=== PATIENT | female | born 1945 | race Caucasian/White ===

== ENCOUNTER 2024-11-12 16:47 | Inpatient (IN) | payer MEDICARE, OTHER ==
[~2024-11-12] VITALS: Ht 160 cm; Wt 113.5 kg
--- NOTE | 2024-11-12 18:20 | DVH ---
EXAM: XR Chest, 1 View CLINICAL INDICATION: CHEST PAIN TECHNIQUE: Frontal view of the chest. COMPARISON: None FINDINGS: LUNGS AND PLEURAL SPACES: Unremarkable. No consolidation. No pneumothorax. HEART: Unremarkable. No cardiomegaly. MEDIASTINUM: Unremarkable. Normal mediastinal contour. BONES/JOINTS: Unremarkable. No acute fracture. OTHER FINDINGS: . None. IMPRESSION: No acute cardiopulmonary process.
[2024-11-12 18:23] LABS: Basophils # (auto) 0 10 ^3/uL (0-0.2); Basophils % (auto) 0.5 % (0.0-2.0); Eosinophils # (auto) 0.3 10 ^3/uL (0-0.8); Eosinophils % (auto) 3.8 % (0.0-7.0); Hematocrit 35.9 % (36.0-46.0); Hemoglobin 11.9 g/dL (12.2-16.2); Lymphocytes % (auto) 24.2 % (10.0-50.0); Mean Corpuscular Hemoglobin 31.1 pg (28.0-32.0); Mean Corpuscular Hgb Conc. 33.2 g/dL (32.0-36.0); Mean Corpuscular Volume 93.7 fL (80.0-100.0); Monocytes % (auto) 11.5 % (0.0-12.0); Nucleated Red Blood Cells % 0.1 %; Platelet Count (auto) 191 10^3/uL (140-450); Red Blood Cells 3.83 10^6/uL (4.0-5.20); Red Cell Distribution Width 13.4 % (11.8-14.3); White Blood Cell 8.4 10^3/uL (4.4-10.8)
--- NOTE | 2024-11-12 18:24 | ED.PDOC ---
HPI Comments HPI: 79 year old female CLIFFORD presents to the ED with chief complaint of chest pain. Patient reports that while in her family's car, she started to experience severe chest pain across her chest, so they had stopped by a fire station for assistance. EMS relays that upon their arrival, patient was given 324mg of ASA with relief in the patient's pain noted. Patient states she no longer has any chest pain at this time. Patient denies any SOB, dizziness, N/V, numbness, weakness, or headache. All symptoms have resolved prior to my evaluation. Initial Vital Signs: Temp : 97.8F BP: 166/70 HR: 70 RR: 20 SpO2: 99% Past Medical History: DM, CHF, HTN, CKF Past Surgical History: Left hip replacement, Appendectomy, Cholecystectomy, Back surgery Social History: Denies smoking, ETOH, or drug use. Allergies: NKDA HPI: Poor Historian. REVIEW OF SYSTEMS: CONSTITUTIONAL: Denies acute: fever, diaphoresis, chills, generalized weakness. HEAD: Denies acute: headache, photophobia Eyes: Denies acute: Double vision, vision loss, eye pain, eye discharge. EARS: Denies acute: tinnitus, hearing loss, ear discharge, ear pain, THROAT: Denies acute: sore throat, swelling, difficulty swallowing , pain with swallowing, change in voice. NECK: Denies acute: neck pain, neck swelling, stiff neck. HEART: Denies acute : palpitations, LUNGS: Denies acute: SOB, wheezing, cough, hemoptysis ABDOMEN: Denies acute: abdominal pain, Nausea, Vomiting, diarrhea, melena , hematemesis, hematochezia SKIN: Denies acute: rash, redness, lesions, itchiness. EXTREMITIES: Denies acute: calf pain, numbness, tingling, weakness, denies pain in extremity. Denies acute: Low back pain. Neuro: Denies acute: focal neurological deficit, motor or sensory focal neurological deficit, tremors, seizure like activity, confusion, dizziness, change in mental status, loss of bowel or bladder function, cauda equina like symptoms. : Denies acute: dysuria, hematuria, flank pain, increase in urinary frequency. PSYCH: Denies acute: hallucination, suicidal ideation, homicidal ideation. FEMALE: Denies acute: abnormal vaginal bleeding, foul odor, unusual discharge. PHYSICAL EXAM: General: no acute distress, awake and alert. Head: normocephalic, atraumatic. Neck: supple, trachea is midline, no swelling. Throat: Normal phonation. Eyes:, no erythema, no purulent discharge, no proptosis, no icterus. Heart: regular rate, regular rhythm, no significant murmur appreciated. Lungs: no apparent respiratory distress, Able to speak in full sentences. No wheezing, no rhonchi, no crackles. No stridors Clear to auscultation bilaterally. Abdomen: non tender to palpation, non distended, soft, no guarding, no rebound, + bowel sounds. Obese. Neuro: Awake, Alert, oriented to name, self, situation, follows commands GCS=15. Speech is normal. Skin: no petechia, no purpura, no cyanosis, non-pale, not jaundice. Lower extremities: --trace bilateral - Pitting edema no deformity, no focal swelling, no calf TTP. Makes eye contact. moves all four extremities. Face: no apparent facial droop. ED COURSE: Chief Complaint: Chest Pain Time Seen by MD: 18:21 Primary Care Provider: UNKNOWN Reviewed Notes: Nurses Notes, Allergies Allergies: Coded Allergies: NO KNOWN ALLERGIES (Unverified , 11/12/24) Information Source: Patient Mode of Arrival: EMS Was a procedure done? Was a procedure done?: No CP Differential Dx Differential Diagnosis: N/A Differential Diagnosis: Other (Ddx include but not limitied to gastritis, musculoskeletal pain, radiculopathy, atypical chest pain, dissection, aneurysm, ACS, unstable angina, hiatal hernia, GERD, anxiety, costochondritis, PE, pneumothroax, neoplasm, cardiac ischemia, drug abuse, anemia.) X-Ray, Labs, Meds, VS Vital Signs Date Time Temp Pulse Resp B/P (MAP) Pulse Ox O2 Delivery O2 Flow Rate FiO2 11/12/24 20:30 98.4 62 18 169/68 (101) 95 98.4 11/12/24 17:33 61 11/12/24 17:20 97.8 70 20 166/70 (102) 99 97.8 11/12/24 16:49 61 Lab Test 11/12/24 21:45 11/12/24 19:52 11/12/24 17:52 Range/Units Troponin I High Sensitivity Pending 5 5 </=34 ng/L Thyroid Stimulating Hormone (TSH) Pending White Blood Count 8.4 4.4-10.8 10^3/uL Red Blood Count 3.83 L 4.0-5.20 10^6/uL Hemoglobin 11.9 L 12.2-16.2 g/dL Hematocrit 35.9 L 36.0-46.0 % Mean Corpuscular Volume 93.7 80.0-100.0 fL Mean Corpuscular Hemoglobin 31.1 28.0-32.0 pg Mean Corpuscular Hemoglobin Concent 33.2 32.0-36.0 g/dL Red Cell Distribution Width 13.4 11.8-14.3 % Platelet Count 191 140-450 10^3/uL Mean Platelet Volume 8.1 6.9-10.8 fL Neutrophils (%) (Auto) 60.0 37.0-80.0 % Lymphocytes (%) (Auto) 24.2 10.0-50.0 % Monocytes (%) (Auto) 11.5 0.0-12.0 % Eosinophils (%) (Auto) 3.8 0.0-7.0 % Basophils (%) (Auto) 0.5 0.0-2.0 % Neutrophils # (Auto) 5.0 1.6-8.6 10 ^3/uL Lymphocytes # (Auto) 2.0 0.4-5.4 10 ^3/uL Monocytes # (Auto) 1.0 0-1.3 10 ^3/uL Eosinophils # (Auto) 0.3 0-0.8 10 ^3/uL Basophils # (Auto) 0 0-0.2 10 ^3/uL Nucleated Red Blood Cells 0.1 % Sodium Level 142 136-145 mmol/L Potassium Level 4.5 3.5-5.1 mmol/L Chloride Level 107 98-107 mmol/L Carbon Dioxide Level 27 20-31 mmol/L Anion Gap 8 5-15 Blood Urea Nitrogen 72 H 9-23 mg/dL Creatinine 2.41 H 0.550-1.02 mg/dL Glomerular Filtration Rate Calc 20 >90 mL/min BUN/Creatinine Ratio 29.9 H 10.0-20.0 Serum Glucose 144 H 74-106 mg/dL Calcium Level 10.0 8.7-10.4 mg/dL Total Bilirubin 0.2 0.2-1.0 mg/dL Aspartate Amino Transferase (AST) 17 13-40 U/L Alanine Aminotransferase (ALT) 23 7-40 U/L Alkaline Phosphatase 88 46-116 U/L Total Protein 6.3 5.7-8.2 g/dL Albumin 4.3 3.2-4.8 g/dL [place] [address] Ph: [phone] DIAGNOSTIC IMAGING Diagnostic Imaging Report : [id number] Signed PATIENT: SAE THORNE ACCT: [id number] UNIT: [id number] : 1945 LOC: ER ROOM / BED: / AGE / SEX: 79 / F ADM STATUS: REG ER SERVICE 19 ORDERING PHYSICIAN: MOR JACKMAN DO PROCEDURE(s): CXRP - CHEST PORTABLE REASON: CHEST PAIN ORDER NUMBER(s): [id number], ACCESSION NUMBER(s): [id number] EXAM: XR Chest, 1 View CLINICAL INDICATION: CHEST PAIN TECHNIQUE: Frontal view of the chest. COMPARISON: None FINDINGS: LUNGS AND PLEURAL SPACES: Unremarkable. No consolidation. No pneumothorax. HEART: Unremarkable. No cardiomegaly. MEDIASTINUM: Unremarkable. Normal mediastinal contour. BONES/JOINTS: Unremarkable. No acute fracture. OTHER FINDINGS: . None. IMPRESSION: No acute cardiopulmonary process. ATED BY: IGNACIO MILLER MD DICTATED DATE/TIME: 11/12/241817 SIGNED BY: IGNACIO MILLER MD SIGNED DATE/TIME: 11/12/241817 CC: Time of 1ST Reevaluation: 19:21 Reevaluation 1ST: Unchanged Patient Education/Counseling: Diagnosis, Treatment Family Education/Counseling: No Family Present Comments Patient presented with the above HPI.---chest pain---workup was initiated. patient was found with the above mentioned diagnosis. the following medications were ordered: please refer to order lists of meds and tests obtained by myself Dr. Jackman. Patient ED course and VS have been stabilized. Patient has been reassessed in the ED and remained in a stable condition. Pertinent incidental findings were discussed with the patient and/or family. Patient/family voices understanding and is agreeable with plan. Patient has been observed in the ED adequate length of time to insure improvement/stability. Escalation of care considered: Consideration of escalation to observation or admission Patient was ADMITTED to the medicine team for further evaluation and treatment of their presentation. All the reports of any imaging studies that were ordered by myself were reviewed by myself. Departure 1 Departure Time of Disposition: 18:31 Impression: Primary Impression: Chest pain Disposition: ADMITTED INPATIENT Admit to: Tele Condition: Guarded Discharged With: Self Critical Care Note Critical Care Time?: No Heart Score Heart Score: Heart Score Response (Comments) Value History Moderate Suspicious 1 EKG Normal 0 Age >65 2 Risk Factors >3 or Hx ASHD 2 Troponin Normal limit 0 Total 5 I personally scribed for MOR JACKMAN DO ([email or web address]) on 11/12/24 at 18:24. Electronically submitted by Devan Mcguire ([email or web address]). I personally scribed for MOR JACKMAN DO ([email or web address]) on 11/12/24 at 18:50. Electronically submitted by Devan Mcguire ([email or web address]). MOR JACKMAN DO Nov 12, 2024 18:24
[2024-11-12 18:30] LABS: Alanine Aminotransferase 23 U/L (7-40); Albumin 4.3 g/dL (3.2-4.8); Alkaline Phosphatase 88 U/L (46-116); Anion Gap 8 (5-15); Aspartate Aminotransferase 17 U/L (13-40); BUN/Creatinine Ratio 29.9 (10.0-20.0); Carbon Dioxide 27 mmol/L (20-31); Chloride 107 mmol/L (98-107); Potassium 4.5 mmol/L (3.5-5.1); Sodium 142 mmol/L (136-145); Total Protein 6.3 g/dL (5.7-8.2)
[2024-11-12 18:55] LABS: Bilirubin, Total 0.2 mg/dL (0.2-1.0); Blood Urea Nitrogen 72 mg/dL (9-23); Glucose 144 mg/dL (74-106)
[2024-11-12 20:30] VITALS: TEMP 98.4
[2024-11-12] MEDS ORDERED: ATORVASTATIN 20 MG TAB PO SCH (22:00)
[2024-11-12] MEDS ORDERED: CARVEDILOL 3.125 MG TAB PO ONE (22:00)
[2024-11-12] MEDS ORDERED: NITROGLYCERIN 0.4 MG SL TAB SL PRN (22:00)
[2024-11-12] MEDS ORDERED: hydrALAZINE HCL 20 MG/ML VL IV ONE (22:00)
[2024-11-12] MEDS ORDERED: ATORVASTATIN 20 MG TAB PO ONE (22:00)
[2024-11-12] MEDS ORDERED: hydroCHLOROthiazide 25 MG TAB PO ONE (22:00)
[2024-11-12] MEDS ORDERED: MORPHINE SULFATE INJ 2 MG/ml SYRG IV PRN (22:00)
--- NOTE | 2024-11-12 22:09 | DVHHPRES ---
History of Present Illness Resident Creating Document: DUC LAY Reason for Visit: chest pain History of Present Illness Patient is an 79-year-old female with a past medical history of diabetes, hypertension, dyslipidemia, and CHF presented to the ED today with unprovoked chest pain earlier today. According to the patient, she was sitting in her daughter's car and all of a sudden she started having chest pain that felt like tightness substernally. It radiates towards her neck. Patient's daughter immediately called 911, patient was picked up by the ambulance and brought to the ED. On route to the ED, patient received 4 baby aspirin and by the time she got to the ED, the chest pain has subsided and she felt better. She denied any nausea vomiting or palpitation. Patient said she is compliant with her medications. Past medical history: Diabetes, hypertension, dyslipidemia, and CHF Past Surgical History: Left hip replacement, Appendectomy, Cholecystectomy, Back surgery Family history: Noncontributory Social history: Lives at home with her daughter does not drink or smoke Past Medical History See HPI Past Surgical History See HPI Family History See HPI Review of Systems Review of Systems Constitutional: Denies fever no chills no feeling of malaise HEENT: Denies headache, ear pain, ear discharges, conjunctivitis, nasal disc harge throat pain Cardiovascular: Denies chest pain, palpitation, orthopnea, PND, or pedal edema Respiratory: Denies shortness of breath, cough cough, sputum production, hemoptysis, GI: Denies abdominal pain, nausea, vomiting, diarrhea, hematemesis, hem atochezia, : Denies frequency, urgency, hematuria, Endocrine: Denies unintentional weight gain or weight loss, feeling of hot flashes, Martin: Denies easy bruising, bleeding disorders, epistaxis Musculoskeletal: Denies joint pains, muscle aches Psych: No evidence of depression, chelsea, suicidal ideation Allergies: Coded Allergies: NO KNOWN ALLERGIES (Unverified , 11/12/24) Medications Current Medications Medications Dose Ordered Sig/Margarita Route Start Time Stop Time Status Last Admin Dose Admin Enoxaparin Sodium 40 mg DAILY SC 11/13/24 10:00 UNV Morphine Sulfate 2 mg Q30M PRN IV 11/12/24 22:00 UNV Nitroglycerin 0.4 mg Q5MINP PRN SL 11/12/24 22:00 UNV Aspirin 81 mg DAILY PO 11/13/24 10:00 UNV Atorvastatin Calcium 40 mg HS PO 11/12/24 22:00 UNV Carvedilol 6.25 mg Q12HR PO 11/12/24 22:00 UNV Hydrochlorothiazide 25 mg DAILY PO 11/13/24 10:00 UNV Exam Vital Signs Vital Signs Date Time Temp Pulse Resp B/P (MAP) Pulse Ox O2 Delivery O2 Flow Rate FiO2 11/12/24 20:30 98.4 62 18 169/68 (101) 95 98.4 Exam General Appearance: Alert, Oriented X3, Cooperative, No acute distress HEENT: Atraumatic, PERRLA, EOMI, Mucous membrane moist/pink Respiratory: Clear to auscultation, Normal air movement Cardiovascular: Regular rate, Normal S1, Normal S2, No murmurs, no chest wall tenderness Abdominal: NO distention, no tenderness, bowel sounds present, no scars noted Extremities: No clubbing, No cyanosis, No edema, Normal pulses, No tenderness/swelling Skin: No rashes, No breakdown, No significant lesion Neuro: Normal gait, Normal speech, Strength at 5/5 X4 ext, Normal tone, Sensation intact, Cranial nerves 3-12 NL, Reflexes 2+ Psych/Mental Status: Mental status NL, Mood NL Labs/Xrays Labs Test 11/12/24 21:45 11/12/24 17:52 Range/Units White Blood Count 8.4 4.4-10.8 10^3/uL Red Blood Count 3.83 L 4.0-5.20 10^6/uL Hemoglobin 11.9 L 12.2-16.2 g/dL Hematocrit 35.9 L 36.0-46.0 % Mean Corpuscular Volume 93.7 80.0-100.0 fL Mean Corpuscular Hemoglobin 31.1 28.0-32.0 pg Mean Corpuscular Hemoglobin Concent 33.2 32.0-36.0 g/dL Red Cell Distribution Width 13.4 11.8-14.3 % Platelet Count 191 140-450 10^3/uL Mean Platelet Volume 8.1 6.9-10.8 fL Neutrophils (%) (Auto) 60.0 37.0-80.0 % Lymphocytes (%) (Auto) 24.2 10.0-50.0 % Monocytes (%) (Auto) 11.5 0.0-12.0 % Eosinophils (%) (Auto) 3.8 0.0-7.0 % Basophils (%) (Auto) 0.5 0.0-2.0 % Neutrophils # (Auto) 5.0 1.6-8.6 10 ^3/uL Lymphocytes # (Auto) 2.0 0.4-5.4 10 ^3/uL Monocytes # (Auto) 1.0 0-1.3 10 ^3/uL Eosinophils # (Auto) 0.3 0-0.8 10 ^3/uL Basophils # (Auto) 0 0-0.2 10 ^3/uL Nucleated Red Blood Cells 0.1 % Sodium Level 142 136-145 mmol/L Potassium Level 4.5 3.5-5.1 mmol/L Chloride Level 107 98-107 mmol/L Carbon Dioxide Level 27 20-31 mmol/L Anion Gap 8 5-15 Blood Urea Nitrogen 72 H 9-23 mg/dL Creatinine 2.41 H 0.550-1.02 mg/dL Glomerular Filtration Rate Calc 20 >90 mL/min BUN/Creatinine Ratio 29.9 H 10.0-20.0 Serum Glucose 144 H 74-106 mg/dL Calcium Level 10.0 8.7-10.4 mg/dL Total Bilirubin 0.2 0.2-1.0 mg/dL Aspartate Amino Transferase (AST) 17 13-40 U/L Alanine Aminotransferase (ALT) 23 7-40 U/L Alkaline Phosphatase 88 46-116 U/L Total Protein 6.3 5.7-8.2 g/dL Albumin 4.3 3.2-4.8 g/dL Assessment/Plan Assessment/Plan Assessment Chest pain rule out ACS Diabetes mellitus Hyperlipidemia Hypertension Morbid obesity Congestive heart failure Plan Admit for further workup Troponin negative x 3 EKG revealed PVC and ventricular hypertrophy otherwise unremarkable We will get an echo to assess patient's ventricular function Pending A1 C Resume home medication for lipid and hypertension. Per patient she has not taken her medications this morning. This may probably be the reason for the chest pain Patient has been wanting to go home because she is she said she feels better. Advised patient to stay and complete the workup. however patient keeps telling me she feels better she wants to go home and if she started having chest pain again her daughter can take her to the emergency. Goal of care discussed for more than 25 minutes: full code Case and plan discussed with Dr. Glez. Plan discussed with: Patient My Orders Orders - DUC LAY RESIDENT Procedure Category Date Status Time Admit ADMIT 11/12/24 Transmitted 22:00 Code Status CODE 11/12/24 Transmitted 22:00 Vital Signs GALINA 11/12/24 In Process 22:00 Review Orders With GALINA 11/12/24 In Process Adm. 22:00 Consistent DIET 11/13/24 [facility]Diabetes Breakfast Notify Md Of Changes [facility] 11/12/24 In Process From Base 22:00 Advance Directive [facility] 11/12/24 In Process 22:00 Echo 2d Mode Cardiac US 11/12/24 Logged DOP 22:00 Patient Condition ORDERS 11/12/24 Transmitted 22:00 Allergies GALINA 11/12/24 In Process 22:00 Enoxaparin Sodium PHA 11/13/24 Logged (Lovenox) 10:00 Morphine Sulfate PHA 11/12/24 Logged Injection 22:00 Oxygen By Nasal RT 11/12/24 Transmitted Cannula 22:00 Stat Ekg For Chest [facility] 11/12/24 In Process Pain 22:00 Notify Md Of Changes [facility] 11/12/24 In Process From Base 22:00 Clinical Registered Nurse For [facility] 11/12/24 In Process 24 Hours 22:00 Emergency Dysrhythmia [facility] 11/12/24 In Process Protocol 22:00 Rhythm Strips Once [facility] 11/12/24 In Process Every Shift 22:00 Nitroglycerin PHA 11/12/24 Logged Sublingual (Ntrostat 22:00 Aspirin Tablet PHA 11/13/24 Logged 10:00 Atorvastatin (Lipitor) PHA 11/12/24 Logged 22:00 Atorvastatin (Lipitor) PHA 11/12/24 Logged 22:00 Carvedilol Tablet PHA 11/12/24 Logged (Coreg Tablet) 22:00 Carvedilol Tablet PHA 11/12/24 Logged (Coreg Tablet) 22:00 Hydralazine Injection PHA 11/12/24 Logged (Apresoline Inject 22:00 Hydrochlorothiazide PHA 11/12/24 Logged Tablet (Hydrochlorot 22:00 Hydrochlorothiazide PHA 11/13/24 Logged Tablet (Hydrochlorot 10:00 Basic Metabolic Panel LAB 11/13/24 Verified 04:00 Complete Blood Count LAB 11/13/24 Verified 04:00 PTPTT LAB 11/13/24 Verified 04:00 Thyroid Stimulating LAB 11/12/24 Transmitted Hormone 22:07 Urinalysis LAB 11/12/24 Transmitted 22:07 Drug Screen LAB 11/12/24 Transmitted 22:07 Date of Service: Nov 12, 2024 Billing Provider: GERRY GLEZ MD Common Visit Codes: 36005-BHSTISX INP/OBS CARE (HIGH) Secondary Visit Codes: 46155-[id number] CARE PLAN 30 MINUTES DUC LAY RESIDENT Nov 12, 2024 22:09 GERRY GLEZ MD Nov 15, 2024 10:57
[2024-11-12 23:00] VITALS: BP 159/88; PULSE 60; RESP 18; O2SAT 96
--- NOTE | 2024-11-13 07:27 | DVHDSRES ---
Discharge Summary Date of Admission Resident Creating Document: DUC LAY RESIDENT Nov 12, 2024 at 22:00 Date of Discharge: Nov 12, 2024 Admitting Diagnosis Chest pain Labs/Diagnostic Data: Laboratory Results Test 11/12/24 21:45 11/12/24 19:52 11/12/24 17:52 Troponin I High Sensitivity 6 ng/L (</=34) Thyroid Stimulating Hormone (TSH) 1.39 uIU/mL (0.55-4.78) White Blood Count 8.4 10^3/uL (4.4-10.8) Red Blood Count 3.83 10^6/uL (4.0-5.20) Hemoglobin 11.9 g/dL (12.2-16.2) Hematocrit 35.9 % (36.0-46.0) Mean Corpuscular Volume 93.7 fL (80.0-100.0) Mean Corpuscular Hemoglobin 31.1 pg (28.0-32.0) Mean Corpuscular Hemoglobin Concent 33.2 g/dL (32.0-36.0) Red Cell Distribution Width 13.4 % (11.8-14.3) Platelet Count 191 10^3/uL (140-450) Mean Platelet Volume 8.1 fL (6.9-10.8) Neutrophils (%) (Auto) 60.0 % (37.0-80.0) Lymphocytes (%) (Auto) 24.2 % (10.0-50.0) Monocytes (%) (Auto) 11.5 % (0.0-12.0) Eosinophils (%) (Auto) 3.8 % (0.0-7.0) Basophils (%) (Auto) 0.5 % (0.0-2.0) Neutrophils # (Auto) 5.0 10 ^3/uL (1.6-8.6) Lymphocytes # (Auto) 2.0 10 ^3/uL (0.4-5.4) Monocytes # (Auto) 1.0 10 ^3/uL (0-1.3) Eosinophils # (Auto) 0.3 10 ^3/uL (0-0.8) Basophils # (Auto) 0 10 ^3/uL (0-0.2) Nucleated Red Blood Cells 0.1 % Sodium Level 142 mmol/L (136-145) Potassium Level 4.5 mmol/L (3.5-5.1) Chloride Level 107 mmol/L (98-107) Carbon Dioxide Level 27 mmol/L (20-31) Anion Gap 8 (5-15) Blood Urea Nitrogen 72 mg/dL (9-23) Creatinine 2.41 mg/dL (0.550-1.02) Glomerular Filtration Rate Calc 20 mL/min (>90) BUN/Creatinine Ratio 29.9 (10.0-20.0) Serum Glucose 144 mg/dL (74-106) Calcium Level 10.0 mg/dL (8.7-10.4) Total Bilirubin 0.2 mg/dL (0.2-1.0) Aspartate Amino Transferase (AST) 17 U/L (13-40) Alanine Aminotransferase (ALT) 23 U/L (7-40) Alkaline Phosphatase 88 U/L (46-116) Total Protein 6.3 g/dL (5.7-8.2) Albumin 4.3 g/dL (3.2-4.8) Other Laboratory Tests 11/12/24 17:52 Brief Hx & Hospital Course: Patient is an 79-year-old female with a past medical history of diabetes, hypertension, dyslipidemia, and CHF presented to the ED today with unprovoked chest pain earlier today. According to the patient, she was sitting in her daughter's car and all of a sudden she started having chest pain that felt like tightness substernally. It radiates towards her neck. Patient's daughter immediately called 911, patient was picked up by the ambulance and brought to the ED. On route to the ED, patient received 4 baby aspirin and by the time she got to the ED, the chest pain has subsided and she felt better. She denied any nausea vomiting or palpitation. Patient said she is compliant with her medications. Shortly after 11:00 p.m. patient left AMA. I explained to her the risk of leaving and I asked patient to stay for us to complete the workup given her underlying risk factors. She expressed full comprehension of the risk associated with her chest pain and she signed out AMA. Condition at Discharge: Unstable Final Diagnosis/Problems List Chest pain rule out ACS Diabetes Hyperlipidemia Hypertension Morbid obesity Congestive heart failure Discharge Disposition: AMA Discharge Statement: "Patient was advised to return to the ER or call 911 if any headaches, dizziness, shortness of breath, chest pain, abdominal pain, bleeding, fevers, or worsening of medical condition. Patient was counseled about treatment plan, medications, possible side effects, patientverbalized understanding. All questions were answered to the best of my ability. This discharge took greater then 30 minutes in planning, reviewing documentation, counseling the patient, and discussing with other team members." ASSESSMENT ASSESSMENT Assessment Date of Service: Nov 12, 2024 Billing Provider: GERRY BANGURA MD Common Visit Codes: 65565-TYQ/OBS DISCH DAY <30MIN DUC LAY RESIDENT Nov 13, 2024 07:27 GERRY BANGURA MD Nov 15, 2024 10:58
[2024-11-13] MEDS ORDERED: CARVEDILOL 3.125 MG TAB PO SCH (10:00)
[2024-11-13] MEDS ORDERED: ENOXAPARIN SOD 40 MG/0.4 ML SYRINGE SC SCH (10:00)
[2024-11-13] MEDS ORDERED: hydroCHLOROthiazide 25 MG TAB PO SCH (10:00)
[2024-11-13] MEDS ORDERED: ASPirin 81 mg TAB PO SCH (10:00)
[2024-11-13] MEDS ORDERED: ATORVASTATIN 20 MG TAB PO SCH (22:00)
--- NOTE | 2024-11-15 14:51 | ECG ---
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
--- NOTE | 2024-11-16 11:34 | ECG ---
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
--- NOTE | 2024-11-18 14:44 | ECG ---
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
== END 2024-11-12 23:04 | disposition left against medical advice (07) | DRG 311 ==
LOC: ER 16:47 → EDBD 16:47 → OVERFLOW 21:07
PROVIDERS: ATTEND Emergency Medicine
DX: I24.9 Acute ischemic heart disease, unspecified (principal); Z68.41 Body mass index [BMI] 40.0-44.9, adult; Z96.642 Presence of left artificial hip joint; E11.9 Type 2 diabetes mellitus without complications; I50.9 Heart failure, unspecified; I11.0 Hypertensive heart disease with heart failure; E78.5 Hyperlipidemia, unspecified; E66.01 Morbid (severe) obesity due to excess calories; Z53.29 Procedure and treatment not carried out because of patient's decision for other reasons; Z90.49 Acquired absence of other specified parts of digestive tract
CPT/HCPCS: 36415; 71045; 80053; 84443; 84484; 85025; 93005; G0378